=== PATIENT | female | born 1995 | race Caucasian/White ===

== ENCOUNTER 2017-06-04 18:29 | Emergency (ER) | payer MEDICAID ==
[~2017-06-04] VITALS: Ht 157.5 cm; Wt 43.0 kg
[2017-06-04 18:34] VITALS: Ht 157.5 cm; Wt 43.0 kg
[2017-06-04] MEDS ORDERED: IBUP400T22 PO (20:39)
[2017-06-04] MEDS ORDERED: CEPH-443 PO (20:39)
[2017-06-04 20:47] VITALS: BP 112/75; PULSE 73; RESP 20; TEMP 98
--- NOTE | 2017-06-04 21:03 | ERD ---
ER Documentation Chief Complaint Date/Time DATE: 06/04/17 TIME: 20:59 Chief Complaint Requesting to have lip piercing removed. HPI 21-year-old female patient with no significant past medical history reports that she just got a lip piercing 4 days ago. Reports that it is getting painful and wants to remove it. States that she got it at a tattoo parlor on [facility]. States that she does have some swelling on her lower lip. Denies any fever, chills, nausea, vomiting, increased redness, swelling, difficulty swallowing, difficulty breathing, ROS All systems reviewed and are negative except as per history of present illness. Medications Home Meds Active Scripts Ibuprofen* (Motrin*) 400 Mg Tab, 400 MG PO Q6, #30 TAB Prov:PREM BAUMANN PA-C 06/04/17 Cephalexin* (Keflex*) 500 Mg Capsule, 500 MG PO QID for 7 Days, CAP Prov:PREM BAUMANN PA-C 06/04/17 Allergies Allergies: Coded Allergies: No Known Allergy (Unverified , 06/04/17) PMhx/Soc Medical and Surgical Hx: pt denies Medical Hx, pt denies Surgical Hx History of Surgery: No Anesthesia Reaction: No Hx Neurological Disorder: No Hx Respiratory Disorders: No Hx Cardiac Disorders: No Hx Psychiatric Problems: No Hx Miscellaneous Medical Probl: No Hx Alcohol Use: Yes Hx Substance Use: No Hx Tobacco Use: Yes Smoking Status: Never smoker Physical Exam Vitals Vital Signs Date Time Temp Pulse Resp B/P Pulse Ox O2 Delivery O2 Flow Rate FiO2 06/04/17 20:47 98.0 73 20 112/75 99 Room Air 06/04/17 18:34 98.2 89 18 110/77 98 Physical Exam Const: Ziw-[id number]-ziacinpce, well-nourished. In no acute distress. Head: Atraumatic, normocephalic Eyes: Normal Conjunctiva without injection. No purulent discharge. PERRL. EOMI ENT: Normal external ear. Ear canal without erythema. Tympanic membrane pearly amador without effusion or bulging. Nasal canal clear with normal turbinates. Moist oropharynx without tonsillar exudates. Marcial piercing noted on the mid lower lip with slight edema noted. Crests surrounding the piercing site. Non- erythematous pharynx. Uvula midline. No drooling. No trismus. Neck: Full range of motion. No meningismus. No cervical lymphadenopathy. Resp: Clear to auscultation bilaterally. No wheezing, rhonchi, rales, or crackles. No accessory muscle use. No retractions. Cardio: Regular rate and rhythm. No murmurs, rubs or gallops. Skin: No petechiae or rashes Ext: No cyanosis, or edema. Neur: Awake and alert. Psych: Normal Mood and Affect Procedures/MDM 21-year-old female patient with no significant past medical history presents to the ED complaining of a painful piercing of the lower lip. Patient is afebrile and nontoxic-appearing. Patient has normal vital signs. The ER technicians removed the piercing without difficulty by twisting the cath of the marcial appears seen. Patient did have some crusts noted. Patient will be given prophylactic antibiotics to prevent any infection. Ibuprofen will be given to patient to help with inflammation and pain. Low suspicion for scabies, anaphylaxis, SJS/TEN , erythema multiforme, sepsis, cellulitis, necrotizing fascitis, gangrene, meningococcemia or other emergent conditions. Discharge medications: Ibuprofen, Keflex Follow up with primary care physician in 1-2 days. Instructed patient to return to the ED sooner for any worsening symptoms. Patient's questions were answered. Patient understood and agreed with discharge plan. Patient discharged stable. Departure Diagnosis: Primary Impression: Body piercing Condition: Stable Patient Instructions: Foreign Body, Soft Tissue (Removed) Referrals: [facility] YOU HAVE RECEIVED A MEDICAL SCREENING EXAM AND THE RESULTS INDICATE THAT YOU DO NOT HAVE A CONDITION THAT REQUIRES URGENT TREATMENT IN THE EMERGENCY DEPARTMENT. FURTHER EVALUATION AND TREATMENT OF YOUR CONDITION CAN WAIT UNTIL YOU ARE SEEN IN YOUR DOCTORS OFFICE WITHIN THE NEXT 1-2 DAYS. IT IS YOUR RESPONSIBILITY TO MAKE AN APPOINTMENT FOR FOLOW-UP CARE. IF YOU HAVE A PRIMARY DOCTOR --you should call your primary doctor and schedule an appointment IF YOU DO NOT HAVE A PRIMARY DOCTOR YOU CAN CALL OUR PHYSICIAN REFERRAL HOTLINE AT IF YOU CAN NOT AFFORD TO SEE A PHYSICIAN YOU CAN CHOSE FROM THE FOLLOWING [facility] [address] [facility]. [facility] [address] [facility] [address] [facility] [address] [facility]. [facility] [address] [facility] [facility]. [address] [facility] [facility] YOU HAVE RECEIVED A MEDICAL SCREENING EXAM AND THE RESULTS INDICATE THAT YOU DO NOT HAVE A CONDITION THAT REQUIRES URGENT TREATMENT IN THE EMERGENCY DEPARTMENT. FURTHER EVALUATION AND TREATMENT OF YOUR CONDITION CAN WAIT UNTIL YOU ARE SEEN IN YOUR DOCTORS OFFICE WITHIN THE NEXT 1-2 DAYS. IT IS YOUR RESPONSIBILITY TO MAKE AN APPOINTMENT FOR FOLOW-UP CARE. IF YOU HAVE A PRIMARY DOCTOR --you should call your primary doctor and schedule and appointment IF YOU DO NOT HAVE A PRIMARY DOCTOR YOU CAN CALL OUR PHYSICIAN REFERRAL HOTLINE AT . IF YOU CAN NOT AFFORD TO SEE A PHYSICIAN YOU CAN CHOSE FROM THE FOLLOWING [facility] INSTITUTIONS: [facility] [address] [place] [address] [facility] [address] [place], [place] [id number] [place] [address] [address] [place] [address] [facility]CIALTIES Additional Instructions: Follow up in 2 days in your clinic for wound check. Call your primary care doctor TOMORROW for an appointment during the next 2-3 days.See the doctor sooner or return here if your condition worsens before your appointment time. - fever, increased swelling, redness, etc. PREM BAUMANN PA-C Jun 04, 2017 21:03
== END 2017-06-04 20:48 | disposition home or self-care (01) ==
LOC: FTE 18:29
DX: S01.501A Unspecified open wound of lip, initial encounter (principal); W31.89XA Contact with other specified machinery, initial encounter; Y92.89 Other specified places as the place of occurrence of the external cause; Z87.891 Personal history of nicotine dependence
CPT/HCPCS: 99283